=== PATIENT | male | born 1990 | race Caucasian/White ===

== ENCOUNTER 2016-07-17 11:15 | Emergency (ER) | payer SELFPAY ==
[~2016-07-17] VITALS: Ht 182.9 cm; Wt 65.8 kg
[2016-07-17 13:05] VITALS: BP 124/81
== END 2016-07-17 14:55 | disposition home or self-care (01) ==
LOC: ER 11:22
DX: S76.011A Strain of muscle, fascia and tendon of right hip, initial encounter (principal); V49.9XXA Car occupant (driver) (passenger) injured in unspecified traffic accident, initial encounter; Y93.89 Activity, other specified; Y99.8 Other external cause status; Y92.488 Other paved roadways as the place of occurrence of the external cause
CPT/HCPCS: 73502

== ENCOUNTER 2019-07-23 11:13 | Emergency (ER) | payer MEDICAID, OTHER ==
[~2019-07-23] VITALS: Ht 182.9 cm; Wt 68.0 kg
[2019-07-23] MEDS ORDERED: KETOROLAC TROMETH 60MG/2ML VIAL IM ONE (11:45)
[2019-07-23] MEDS ORDERED: HYDROcodone-ACET 10/325MG TAB PO ONE (13:00)
[2019-07-23 14:00] VITALS: BP 118/64
== END 2019-07-23 14:34 | disposition home or self-care (01) ==
LOC: ER 11:13
DX: S52.501A Unspecified fracture of the lower end of right radius, initial encounter for closed fracture (principal); X58.XXXA Exposure to other specified factors, initial encounter; Y93.23 Activity, snow (alpine) (downhill) skiing, snowboarding, sledding, tobogganing and snow tubing; Y92.89 Other specified places as the place of occurrence of the external cause; Y99.8 Other external cause status
CPT/HCPCS: 29125; 73110; 96372; 99283; J1885